=== PATIENT | female | born 1995 | race Caucasian/White ===

== ENCOUNTER 2017-06-20 08:16 | Emergency (ER) | payer SELFPAY ==
[~2017-06-20] VITALS: Ht 165.1 cm; Wt 62.6 kg
[2017-06-20 08:20] VITALS: BP 101/63
--- NOTE | 2017-06-20 08:30 | NUR ---
Patient ambulated to bed 3. RN evaluating patient at bedside.
--- NOTE | 2017-06-20 08:35 | NUR ---
21f bib self with c/o fever, bodyaches, headache x last night. Pt denies any pain at this time. Pt sts she took Tylenol approx 0400. Pt denies any sob, n/v/d, or cough. Pt is aox4, with steady gait. RR are even and unlabored. Pt positioned for comfort, bed down. NAD. Awaiting er md whalen. Will continue to monitor.
[2017-06-20] MEDS ORDERED: KETOROLAC 30 MG/ML VIAL IM ONE (09:05)
[2017-06-20] MEDS ORDERED: ONDANSETRON 4 MG ODT PO ONE (09:05)
[2017-06-20 09:45] VITALS: BP 103/61
--- NOTE | 2017-06-20 09:45 | NUR ---
Patient discharged with v/s stable. Written and verbal after care instructions given and explained. Patient alert, oriented and verbalized understanding of instructions. Ambulatory with steady gait. All questions addressed prior to discharge. ID band removed. Patient advised to follow up with PMD. Rx of Tamiflu given. Patient educated on indication of medication including possible reaction and side effects. Opportunity to ask questions provided and answered.
== END 2017-06-20 09:45 | disposition home or self-care (01) ==
LOC: MED 08:16
DX: J09.X2 Influenza due to identified novel influenza A virus with other respiratory manifestations (principal); M79.1 Myalgia; R11.0 Nausea; R50.9 Fever, unspecified; R51 Headache
CPT/HCPCS: 36415; 87804; 96372; 99284; J1885; S0119

== ENCOUNTER 2018-12-13 10:14 | Emergency (ER) | payer OTHER ==
[~2018-12-13] VITALS: Ht 160 cm; Wt 66.5 kg
[2018-12-13 10:26] VITALS: BP 107/68
--- NOTE | 2018-12-13 10:33 | NUR ---
L&D AT BEDSIDE FOR FHT
--- NOTE | 2018-12-13 10:35 | NUR ---
fht 148
--- NOTE | 2018-12-13 10:35 | NUR ---
pt c/o >5 episodes of watery stools yesterday---today with nausea, dizziness, and decreased appetite. denies injury/trauma. DENIES vomiting; SKIN IS PINK/WARM/DRY; AAOX4 WITH EVEN AND STEADY GAIT; PT DENIES ANY FEVER, CP, SOB, OR COUGH AT THIS TIME; PATIENT STATES PAIN OF 0/10 AT THIS TIME; VSS; PATIENT POSITIONED FOR COMFORT; HOB ELEVATED; BEDRAILS UP X1; BED DOWN. ER MD MADE AWARE OF PT STATUS.
[2018-12-13] MEDS ORDERED: NACL 0.9% 1,000 ML IV SCH (10:38)
[2018-12-13] MEDS ORDERED: ONDANSETRON 4 MG/2 ML VIAL IVP ONE (10:40)
[2018-12-13 10:58] LABS: BASOPHILS % (AUTO) 0.2 % (0.0-2.0); EOSINOPHILS % (AUTO) 0.1 % (0.0-4.0); HEMATOCRIT 35.3 % (36-48); HEMOGLOBIN 11.9 g/dL (12.0-16.0); LYMPHOCYTES # (AUTO) 0.7 K/uL (2.5-16.5); LYMPHOCYTES % (AUTO) 12.3 % (20.5-51.1); MEAN CORPUSCULAR HEMOGLOBIN 29 pg (27-31); MEAN CORPUSCULAR HGB CONC 34 g/dL (33-37); MEAN CORPUSCULAR VOLUME 86.4 fL (80-94); MONOCYTES # (AUTO) 0.5 K/uL (0.8-1.0); MONOCYTES % (AUTO) 8.7 % (1.7-9.3); NEUTROPHILS # (AUTO) 4.7 K/uL (1.8-7.7); NEUTROPHILS % (AUTO) 78.7 % (42.2-75.2); PLATELET COUNT (AUTO) 258 K/uL (140-450); RED BLOOD CELL COUNT(AUTO) 4.09 MIL/uL (4.20-5.40); RED CELL DISTRIBUTION WIDTH 14.2 % (11.6-13.7); WHITE BLOOD COUNT (AUTO) 5.9 K/uL (4.8-10.8)
[2018-12-13 11:02] LABS: APPEARANCE,URINE CLEAR (CLEAR); BILIRUBIN,URINE NEGATIVE (NEGATIVE); BLOOD, URINE NEGATIVE (NEGATIVE); COLOR,URINE YELLOW (YELLOW); LEUKOCYTE ESTERASE ,URINE NEGATIVE (NEGATIVE); NITRITE, URINE NEGATIVE (NEGATIVE); PH,URINE 6.5 (5.0-9.0); UGLUCOSE NEGATIVE (NEGATIVE)
[2018-12-13 11:03] LABS: ANION GAP 14.9 (8-16); CARBON DIOXIDE 23.5 mmol/L (21-32); CREATININE 0.6 mg/dL (0.6-1.3); POTASSIUM 3.4 mmol/L (3.5-5.1)
[2018-12-13 11:09] LABS: ALBUMIN 3.3 g/dL (3.4-5.0); TOTAL BILIRUBIN 0.3 mg/dL (0.0-1.0)
[2018-12-13 12:13] VITALS: BP 99/56
== END 2018-12-13 12:13 | disposition home or self-care (01) ==
LOC: MED 10:14
DX: O21.8 Other vomiting complicating pregnancy (principal); O26.892 Other specified pregnancy related conditions, second trimester; R19.7 Diarrhea, unspecified; R42 Dizziness and giddiness; Z3A.20 20 weeks gestation of pregnancy
CPT/HCPCS: 36415; 80053; 81003; 83690; 85025; 96360; 99283; J2405; J7030